=== PATIENT | male | born 1990 | race African-American/Black ===

== ENCOUNTER 2017-06-25 08:07 | Emergency (ER) | payer OTHER ==
[~2017-06-25] VITALS: Ht 182.9 cm; Wt 192.8 kg
[~2017-06-25 08:07] MED LIST: ATENOLOL 50 MG50 M1; COZAAR 50 MG TA50 M2 PO; IBUPROFEN 800800 M1 PO; LISINOPRIL20 MG PO; TRAMADOL 50 MG50 MG PO; ZOLOFT 50 MG TA50 M1; ZOLOFT100 MG PO
[2017-06-25] MEDS ORDERED: PROPRANOLOL 20M20 M1 PO (08:20)
[2017-06-25] MEDS ORDERED: IRON325 PO (08:21)
[2017-06-25] MEDS ORDERED: [UNRECOGNIZED DRUG - REMARK] (08:22)
[2017-06-25] MEDS ORDERED: PREDNISONE50 MG PO (08:31)
[2017-06-25] MEDS ORDERED: VENTOLIN HFA 1818 GM INH (08:31)
[2017-06-25 09:31] VITALS: BP 144/87
== END 2017-06-25 09:32 | disposition home or self-care (01) ==
LOC: M.ERS 08:07
DX: J40 Bronchitis, not specified as acute or chronic (principal); I10 Essential (primary) hypertension; F41.9 Anxiety disorder, unspecified; F17.220 Nicotine dependence, chewing tobacco, uncomplicated

== ENCOUNTER 2018-02-12 07:25 | Emergency (ER) | payer OTHER ==
[~2018-02-12] VITALS: Ht 182.9 cm; Wt 201.8 kg
[~2018-02-12 07:25] MED LIST changes: +IRON325 PO; +PREDNISONE50 MG PO; +PROPRANOLOL 20M20 M1 PO; +VENTOLIN HFA 1818 GM INH; +[UNRECOGNIZED DRUG - REMARK]
[2018-02-12] MEDS ORDERED: ZOLOFT 50 MG TA50 MG PO (07:30)
[2018-02-12] MEDS ORDERED: BENICAR20 MG PO (07:33)
[2018-02-12] MEDS ORDERED: MEDROLDOSEPACK PO (08:37)
[2018-02-12] MEDS ORDERED: VENTOLIN HFA 1818 GM INH (08:37)
[2018-02-12 08:43] VITALS: BP 147/95
== END 2018-02-12 08:44 | disposition home or self-care (01) ==
LOC: M.ERS 07:25
DX: J45.909 Unspecified asthma, uncomplicated (principal); F17.220 Nicotine dependence, chewing tobacco, uncomplicated; I10 Essential (primary) hypertension; F41.9 Anxiety disorder, unspecified; Z86.2 Personal history of diseases of the blood and blood-forming organs and certain disorders involving the immune mechanism

== ENCOUNTER 2020-08-12 22:11 | Emergency (ER) | payer OTHER ==
[~2020-08-12] VITALS: Ht 180.3 cm; Wt 190.5 kg
[~2020-08-12 22:11] MED LIST changes: +BENICAR20 MG PO; +MEDROLDOSEPACK PO; +ZOLOFT 50 MG TA50 MG PO
[2020-08-12] MEDS ORDERED: TOPROL XL100 MG PO (22:20)
[2020-08-12] MEDS ORDERED: PREDNISONE50 MG PO (23:06)
[2020-08-12 23:12] VITALS: BP 123/70
--- NOTE | 2020-08-13 09:38 | EKG ---
[place] [address] ELECTROCARDIOGRAM REPORT Name: DANIELITO JASMINE Room: [facility]#: [id number] Admission: 08/12/20 Attend Phys: Discharge: 08/12/20 Date of : 89 Date of Service: 08/12/202212 Report #: [id number] THIS REPORT FOR: //name// [facility] ED Test Date: 2020-08-12 Test Time: 22:13:57 Pat Name: DANIELITO JASMINE Department: Room: Gender: Librarian: OR : 1990 Requested By: Dedra Ma Order Number: [id number] MD: Arie Burnett Measurements Intervals [place] Rate: 77 P: 0 W[place]: 139 QRS: -1 QRSD: 117 T: 15 QT: 398 QTc: 451 Interpretive Statements Sinus rhythm Nonspecific intraventricular conduction delay No previous ECG available for comparison Electronically Signed On 08-13-2020 9:38:02 CDT by Arie Burnett [email or web address] <ELECTRONICALLY SIGNED> By: Arie Burnett MD, [facility] 08/13/20 0938 12 12 Arie Burnett MD, [facility] /EPI
== END 2020-08-12 23:12 | disposition home or self-care (01) ==
LOC: M.ERS 22:11
DX: M54.12 Radiculopathy, cervical region (principal); I10 Essential (primary) hypertension; F17.200 Nicotine dependence, unspecified, uncomplicated; Z79.899 Other long term (current) drug therapy; Z98.890 Other specified postprocedural states